=== PATIENT | female | born 1940 | race Caucasian/White ===

== ENCOUNTER 2016-05-06 10:44 | Day surgery (SDC) | payer MEDICARE ==
[~2016-05-06] VITALS: Ht 175.3 cm; Wt 136.4 kg
[2016-05-06 11:48] LABS: BASOPHILS 0.3 % (0.0-2.0); EOSINOPHILS 1.4 % (0-7); HEMATOCRIT 37.3 % (36.0-48.0); HEMOGLOBIN 12.3 g/dL (12-16); IMMATURE GRANULOCYTES 0.3 % (0-5); LYMPHOCYTES 41.7 % (15-50); MCH 33.5 pg (26.0-34.0); MCV 101.6 fL (80.0-100.0); MEAN PLATELET VOLUME 9.3 fL (7.4-10.4); MONOCYTES 4.7 % (2-11); NEUTROPHILS 51.6 % (40-80); PLATELET COUNT 177 10x3/uL (130-400); RBC 3.67 10x6/uL (4.00-5.40); WBC 3.6 10x3/uL (4.8-10.8)
[2016-05-06 11:57] LABS: ANION GAP 9.7 mmol/L (8-16); CALCIUM 8.2 mg/dL (8.5-10.1); CARBON DIOXIDE 32.5 mmol/L (21.0-32.0); CREATININE - SERUM 0.9 mg/dL (0.6-1.3); POTASSIUM - SERUM 3.2 mmol/L (3.5-5.1)
[2016-05-06] MEDS ORDERED: COZAAR50 MG PO (12:09)
[2016-05-06] MEDS ORDERED: NORVASC10 MG PO (12:10)
[2016-05-06] MEDS ORDERED: HYDROCODON-ACE1 EAC9 PO (12:10)
[2016-05-06] MEDS ORDERED: FUROSEMIDE20 MG PO (12:12)
[2016-05-06] MEDS ORDERED: PRAVACHOL40 MG PO (12:13)
[2016-05-06 12:14] VITALS: BP 158/86; Ht 175.3 cm; Wt 136.4 kg
[2016-05-06] MEDS ORDERED: GLEEVEC400 MG PO (12:14)
--- NOTE | 2016-05-12 12:04 | OP ---
PATIENT NAME: ARMANDO SANCHEZ MEDICAL RECORD: [id number] :44 LOCATION:[facility] ADMISSION DATE: SURGEON: LOGAN MAYER DO DATE OF OPERATION: 05/06/2016 ENDOCOPIST: Logan MAYER DO. PROCEDURE: Colonoscopy with polypectomy. Scope, Olympus video colonoscope. MEDICATIONS: Propofol 350 IV per anesthesia. INDICATIONS FOR TIVA: Elevated BMI and multiple comorbidities including coronary artery disease and hypertension. INDICATIONS FOR PROCEDURE: Screening colonoscopy. FINDINGS: Informed consent was given. The patient was made comfortable with the above medication. After reaching an adequate level of sedation by slow IV push the patient was placed in the left side. The endoscope was then advanced under direct visualization through the rectum to the level of the cecum. The cecal folds, appendiceal orifice and ileocecal valve were identified. The prep was poor to fair, which made potentially identifying some lesions difficult and it is possible that polyps could have been missed due to this prep. There was an ascending colon polyp measuring approximately 8 mm in size, which was sessile. This was removed with hot forceps. The entire polyp was removed and retrieved. The remainder of the examination was normal as best could be seen in light of the poor to fair prep. There were some internal hemorrhoids visualized on retroflexion. There were also external hemorrhoids on the digital rectal examination. The scope was withdrawn from the patient. The patient tolerated the procedure well and there were no complications. IMPRESSION: 1. Single ascending colon polyp removed with hot forceps. 2. Internal and external hemorrhoids. PLAN AND RECOMMENDATIONS: 1. Discharge home when recovery parameters are met. 2. Continue current diet and consider supplementing diet with fiber 1-2 tablespoons daily. 3. Continue current medications. Weigh risks and benefits of continuing surveillance colonoscopies for colon cancer screening purposes. In my opinion, there are multiple comorbidities and potential complications related to sedation, which would outweigh the benefits of further surveillance endoscopies. Other screening that could be considered include Hemoccults, and/or barium enemas. It could also be considered that based on her age and other comorbidities that no further screening or surveillance is necessary. I will discuss this with the patient's family for plans moving forward. TRANSINT:[id number] Voice Confirmation ID: [id number] DOCUMENT ID: [id number] OPERATIVE REPORT [id number] ARMANDO SANCHEZLOGAN HARMON DO at 1204 CC: [id number] DICTATION DATE: 05/06/16 1422 [employer] MACHINE OPERATOR: 05/07/16 0025 [facility] 05/06/16 [id number] [place] [address]
== END 2016-05-06 15:08 | disposition home or self-care (01) ==
LOC: D.OPS 10:44
PROVIDERS: Internal Medicine Gastroenterology
DX: Z12.11 Encounter for screening for malignant neoplasm of colon (principal); D12.2 Benign neoplasm of ascending colon; K64.8 Other hemorrhoids; K64.4 Residual hemorrhoidal skin tags; I25.10 Atherosclerotic heart disease of native coronary artery without angina pectoris; I10 Essential (primary) hypertension